=== PATIENT | male | born 1975 | race African-American/Black ===

== ENCOUNTER 2017-06-08 07:26 | Emergency (ER) | payer MEDICAID ==
[~2017-06-08] VITALS: Wt 83.9 kg
[~2017-06-08 07:26] MED LIST: AMOXICILLIN500 MG PO; CLARITIN10 MG PO; FLEXERIL10 MG PO; KEFLEX500 MG PO; LISINOPRIL2.5 MG; MOTRIN600 MG PO; MOTRIN800 MG PO; VICODIN 5/500 505 MG PO; ZOCOR5 MG
[2017-06-08] MEDS ORDERED: PENICILLIN-VK500 M1 PO (07:37)
[2017-06-08] MEDS ORDERED: Motrin,Rufen800 MG PO (07:37)
== END 2017-06-08 07:41 | disposition home or self-care (01) ==
LOC: ED 07:26
DX: K02.9 Dental caries, unspecified (principal); F17.200 Nicotine dependence, unspecified, uncomplicated; Z79.899 Other long term (current) drug therapy

== ENCOUNTER 2018-04-28 16:32 | Emergency (ER) | payer OTHER ==
[~2018-04-28] VITALS: Ht 167.6 cm; Wt 914.0 kg
[~2018-04-28 16:32] MED LIST changes: +Motrin,Rufen800 MG PO; +PENICILLIN-VK500 M1 PO
[2018-04-28] MEDS ORDERED: VIBRAMYCIN100 MG PO ×2 (16:41→18:09)
[2018-04-28] MEDS ORDERED: LIDEX 0.05% CRE15 GM T (16:41)
== END 2018-04-28 16:44 | disposition home or self-care (01) ==
LOC: ED 16:32
DX: S10.86XA Insect bite of other specified part of neck, initial encounter (principal); Z79.899 Other long term (current) drug therapy; W57.XXXA Bitten or stung by nonvenomous insect and other nonvenomous arthropods, initial encounter; Y93.H2 Activity, gardening and landscaping; Y92.89 Other specified places as the place of occurrence of the external cause; Y99.8 Other external cause status

== ENCOUNTER 2021-05-17 13:33 | Emergency (ER) | payer OTHER ==
[~2021-05-17] VITALS: Ht 167.6 cm; Wt 79.4 kg
[~2021-05-17 13:33] MED LIST changes: +CLINDAMYCIN150 MG PO; +LIDEX 0.05% CRE15 GM T; +VIBRAMYCIN100 MG PO
[2021-05-17 14:14] LABS: BASO % 0.4 % (0.0-1.0); EOS % 0.5 % (1.0-4.0); HEMATOCRIT 41.7 % (42.0-52.0); LYMPH # 2.8 10*3/uL (1.3-4.4); LYMPH % 35.8 % (27.0-41.0); MEAN CELL VOLUME 89.3 fl (80.0-94.0); MEAN CORPUSCULAR HGB 30.2 pg (27.0-31.0); MEAN CORPUSCULAR HGB CONC 33.8 g/dl (33.0-37.0); MEAN PLATELET VOLUME 7.9 fl (9.6-12.3); MONO # 0.9 10*3/uL (0.1-1.0); PLATELET COUNT AUTOMATED 357 10*3/uL (130-400); RED BLOOD COUNT 4.67 10*6/uL (4.50-5.90); RED CELL DISTRI WIDTH 12.3 % (0-14.5); WHITE BLOOD COUNT 7.7 10*3/uL (4.8-10.8)
[2021-05-17 14:32] LABS: ALBUMIN 3.5 gm/dl (3.1-4.5); ALKALINE PHOSPHATASE 70 U/L (45-117); BUN 15 mg/dl (7-24); CHLORIDE 108 mmol/L (98-107); CREATININE 1.26 mg/dL (0.70-1.30); POTASSIUM 3.5 mmol/L (3.5-5.1); SGOT/AST 19 IU/L (3-35); SGPT/ALT 29 U/L (12-78); SODIUM 141 mmol/L (136-145); TOTAL PROTEIN 7.1 gm/dL (6.4-8.2)
== END 2021-05-17 15:03 | disposition short-term general hospital (02) ==
LOC: ED 13:33
PROVIDERS: Emergency Medicine
DX: S68.125A Partial traumatic metacarpophalangeal amputation of left ring finger, initial encounter (principal); W31.89XA Contact with other specified machinery, initial encounter; Y93.89 Activity, other specified; Y92.89 Other specified places as the place of occurrence of the external cause; Y99.8 Other external cause status